=== PATIENT | female | born 1990 | race Caucasian/White ===

== ENCOUNTER 2018-07-21 20:29 | Emergency (ER) | payer BC ==
[~2018-07-21] VITALS: Ht 154.9 cm; Wt 70.3 kg
[2018-07-21 20:54] LABS: URINE BILIRUBIN NEGATIVE (Negative); URINE BLOOD NEGATIVE (Negative); URINE CLARITY CLEAR; URINE COLOR YELLOW; URINE GLUCOSE-RANDOM* NEGATIVE (Negative); URINE KETONES NEGATIVE (Negative); URINE LEUKOCYTES-REFLEX NEGATIVE (Negative); URINE NITRITE-REFLEX NEGATIVE (Negative); URINE PROTEIN (DIPSTICK) NEGATIVE (Negative); URINE SPECIFIC GRAVITY 1.025 (1.005-1.035); URINE UROBILINOGEN 0.2 E.U./dl (0.2-1.0)
[2018-07-21 22:01] LABS: ABSOLUTE NEUTROPHILS 5.7 thou/uL (1.4-8.2); BASOPHILS 0.6 % (0.0-2.0); HEMATOCRIT 35.5 % (37.0-47.0); HEMOGLOBIN 12.1 gm/dL (12.0-15.0); LYMPHOCYTES 29.8 % (24.0-44.0); MCH 30.4 pg (26.0-34.0); MCHC 34.1 g/dL (28.0-37.0); MONOCYTES 4.5 % (1.0-8.0); PLATELET COUNT 331 thou/uL (150-400); POLYS 64.1 % (36.0-66.0); RBC 3.99 mil/uL (4.20-5.00); RDW 13.3 % (10.5-14.5); WBC 8.9 thou/uL (4.0-11.0)
[2018-07-21 22:08] LABS: CALCIUM 8.6 mg/dL (8.5-10.1); CREATININE 0.6 mg/dL (0.6-1.0); POTASSIUM 3.7 mmol/L (3.5-5.1)
[2018-07-21] MEDS ORDERED: TOPAMAX 100 MG100 MG PO (22:11)
[2018-07-21] MEDS ORDERED: TOPAMAX50 MG PO (22:11)
[2018-07-21] MEDS ORDERED: PROZAC20 MG PO (22:11)
[2018-07-21] MEDS ORDERED: NORFLEX100 MG PO (22:41)
[2018-07-21] MEDS ORDERED: IBUPROFEN 600600 M1 PO (22:41)
[2018-07-21] MEDS ORDERED: ULTRAM 50MG TAB50 MG PO (22:41)
[2018-07-21 23:17] VITALS: BP 132/87
== END 2018-07-21 23:18 | disposition home or self-care (01) ==
LOC: ER 20:29
PROVIDERS: Emergency Medicine
DX: M54.6 Pain in thoracic spine (principal); M54.5 Low back pain; R19.7 Diarrhea, unspecified; F17.210 Nicotine dependence, cigarettes, uncomplicated; Z98.890 Other specified postprocedural states